=== PATIENT | female | born 1980 | race Caucasian/White ===

== ENCOUNTER → 2016-10-26 | Outpatient (REF) | payer OTHER | LOC: M LAB REF 13:04 | PROVIDERS: ATTEND Advanced Practice Midwife | DX: Z11.3 Encounter for screening for infections with a predominantly sexual mode of transmission (principal) ==

== ENCOUNTER → 2017-04-10 | Outpatient (CLI) | payer OTHER ==
[2017-04-10 18:04] LABS: ALBUMIN 3.8 GM/DL (3.2-5.2); ALBUMIN/GLOBULIN RATIO 1.58 (1.00-1.93); ALKALINE PHOSPHATASE 45 U/L (45-117); ALT/SGPT 22 U/L (12-78); ANION GAP 3 MEQ/L (8-16); AST/SGOT 11 U/L (15-37); BILIRUBIN,TOTAL 0.3 MG/DL (0.2-1.0); BLOOD UREA NITROGEN 7 MG/DL (7-18); CALCIUM LEVEL 8.4 MG/DL (8.5-10.1); CARBON DIOXIDE LEVEL 27 MEQ/L (21-32); CHLORIDE LEVEL 110 MEQ/L (98-107); CREATININE FOR GFR 0.79 MG/DL (0.55-1.02); FERRITIN 218 NG/ML (8-252); GLOMERULAR FILTRATION RATE > 60.0 (>60); GLUCOSE, FASTING 83 MG/DL (70-105); MAGNESIUM LEVEL 2.3 MG/DL (1.8-2.4); PERCENT SATURATION 37.6 % (13.2-37.4); PHOSPHORUS LEVEL 2.8 MG/DL (2.5-4.9); POTASSIUM SERUM 4.7 MEQ/L (3.5-5.1); SODIUM LEVEL 140 MEQ/L (136-145); TOTAL IRON BINDING CAPACITY 250 UG/DL (250-450); TOTAL PROTEIN 6.2 GM/DL (6.4-8.2)
[2017-04-10 18:20] LABS: BASO % 0.3 % (0.0-1.0); EOS # 0.3 K/mm3 (0.0-0.50); EOS % 4.2 % (0.0-3.0); LARGE UNSTAINED CELL # 0.1 K/mm3 (0.0-0.4); LYMPH # 2.1 K/mm3 (1.5-4.5); LYMPH % 29.8 % (24.0-44.0); MEAN CORPUSCULAR HEMOGLOBIN 30.3 pg (27.0-33.0); MEAN CORPUSCULAR HGB CONC 32.9 g/dl (32.0-36.5); MEAN CORPUSCULAR VOLUME 92.1 fl (80.0-96.0); MONO # 0.3 K/mm3 (0.0-0.8); MONO % 4.1 % (0.0-5.0); NEUTROPHILS # 4.1 K/mm3 (1.8-7.7); NEUTROPHILS % 60.6 % (36.0-66.0); PLATELET COUNT, AUTOMATED 263 k/mm3 (150-450); WHITE BLOOD COUNT 6.8 K/mm3 (4.0-10.0)
[2017-04-10 19:57] LABS: VITAMIN B12 LEVEL 1081 PG/ML (247-911)
[2017-04-13 11:56] LABS: PRETREATED FOLATE FOR RBCFOL 6.4 NG/ML
== END ==
LOC: M WUC 12:46
PROVIDERS: ATTEND Surgery
DX: K91.2 Postsurgical malabsorption, not elsewhere classified (principal); Z98.84 Bariatric surgery status; E55.9 Vitamin D deficiency, unspecified

== ENCOUNTER → 2017-06-28 | Outpatient (REF) | payer OTHER | LOC: M LAB REF 18:32 | PROVIDERS: ATTEND Nurse Practitioner Adult Health | DX: Z82.49 Family history of ischemic heart disease and other diseases of the circulatory system (principal) ==

== ENCOUNTER → 2019-12-29 | Outpatient (CLI) | payer OTHER | LOC: M LABSMTC 10:01 | PROVIDERS: ATTEND Family Medicine | DX: Z11.59 Encounter for screening for other viral diseases (principal); Z20.828 Contact with and (suspected) exposure to other viral communicable diseases ==

== ENCOUNTER 2021-08-09 22:51 | Emergency (ER) | payer OTHER ==
[~2021-08-09] VITALS: Ht 162.6 cm; Wt 81.8 kg
--- OUTSIDE RECORDS SUMMARY | 2021-08-09 22:56 | CCD ---
Author Author [facility] Organization [facility] Address Unknown Phone Unavailable Care Team Providers Care Route Sales Specialist Name Role Phone GABRIEL, J Leona ANP Unavailable Unavailable GABRIEL, J Leona ANP Unavailable Unavailable GABRIEL, J Leona ANP Unavailable Unavailable GABRIEL, J Leona ANP Unavailable Unavailable GABRIEL, J Leona ANP Unavailable Unavailable GABRIEL, J Leona ANP Unavailable Unavailable GABRIEL, J Leona ANP Unavailable Unavailable GABRIEL, J Leona ANP Unavailable Unavailable GABRIEL, J Leona ANP Unavailable Unavailable GABRIEL, J Leona ANP Unavailable Unavailable GABRIEL, J Leona ANP Unavailable Unavailable GABRIEL, J Leona ANP Unavailable Unavailable GABRIEL, J Leona ANP Unavailable Unavailable GABRIEL, J Leona ANP Unavailable Unavailable GABRIEL, J Leona ANP Unavailable Unavailable GABRIEL, J Leona ANP Unavailable Unavailable GABRIEL, J Leona ANP Unavailable Unavailable GABRIEL, J Leona ANP Unavailable Unavailable GABRIEL, J Leona ANP Unavailable Unavailable GABRIEL, J Leona ANP Unavailable Unavailable GABRIEL, J Leona ANP Unavailable Unavailable GABRIEL, J Leona ANP Unavailable Unavailable GABRIEL, J Leona ANP Unavailable Unavailable GABRIEL, J Leona ANP Unavailable Unavailable GABRIEL, J Leona ANP Unavailable Unavailable GABRIEL, J Leona ANP Unavailable Unavailable GABRIEL, J Leona ANP Unavailable Unavailable GABRIEL, J Leona ANP Unavailable Unavailable GABRIEL, J Leona ANP Unavailable Unavailable GABRIEL, J Leona ANP Unavailable Unavailable GABRIEL, J Leona ANP Unavailable Unavailable GABRIEL, J Leona ANP Unavailable Unavailable GABRIEL, J Leona ANP Unavailable Unavailable GABRIEL, J Leona ANP Unavailable Unavailable GABRIEL, J Leona ANP Unavailable Unavailable GABRIEL, J Leona ANP Unavailable Unavailable GABRIEL, J Leona ANP Unavailable Unavailable GABRIEL, J Leona ANP Unavailable Unavailable GABRIEL, J Leona ANP Unavailable Unavailable GABRIEL, J Leona ANP Unavailable Unavailable GABRIEL, J Leona ANP Unavailable Unavailable GABRIEL, J Leona ANP Unavailable Unavailable GABRIEL, J Leona ANP Unavailable Unavailable GABRIEL, J Leona ANP Unavailable Unavailable GABRIEL, J Leona ANP Unavailable Unavailable GABRIEL, J Leona ANP Unavailable Unavailable GABRIEL, J Leona ANP Unavailable Unavailable GABRIEL, J Leona ANP Unavailable Unavailable GABRIEL, J Leona ANP Unavailable Unavailable GABRIEL, J Leona ANP Unavailable Unavailable GABRIEL, J Leona ANP Unavailable Unavailable GABRIEL, J Leona ANP Unavailable Unavailable GABRIEL, J Leona ANP Unavailable Unavailable GABRIEL, J Leona ANP Unavailable Unavailable GABRIEL, J Leona ANP Unavailable Unavailable GABRIEL, J Leona ANP Unavailable Unavailable GABRIEL, J Leona ANP Unavailable Unavailable GABRIEL, J Leona ANP Unavailable Unavailable GABRIEL, J Leona ANP Unavailable Unavailable GABRIEL, J Leona ANP Unavailable Unavailable GABRIEL, J Leona ANP Unavailable Unavailable GABRIEL, J Leona ANP Unavailable Unavailable GABRIEL, J Leona ANP Unavailable Unavailable GABRIEL, J Leona ANP Unavailable Unavailable Re-disclosure Warning The records that you are about to access may contain information from federally-assisted alcohol or drug abuse programs. If such information is present, then the following federally mandated warning applies: This information has been disclosed to you from records protected by federal confidentiality rules (42 CFR part 2). The federal rules prohibit you from making any further disclosure of this information unless further disclosure is expressly permitted by the written consent of the person to whom it pertains or as otherwise permitted by 42 CFR part 2. A general authorization for the release of medical or other information is NOT sufficient for this purpose. The Federal rules restrict any use of the information to criminally investigate or prosecute any alcohol or drug abuse patient.The records that you are about to access may contain highly sensitive health information, the redisclosure of which is protected by Article 27-F of the [place] Public Health law. If you continue you may have access to information: Regarding HIV / AIDS; Provided by facilities licensed or operated by the [place] Office of Mental Health; or Provided by the [place] [facility] Office for People With Developmental Disabilities. If such information is present, then the following [place] [facility] mandated warning applies: This information has been disclosed to you from confidential records which are protected by state law. State law prohibits you from making any further disclosure of this information without the specific written consent of the person to whom it pertains, or as otherwise permitted by law. Any unauthorized further disclosure in violation of state law may result in a fine or mcfp sentence or both. A general authorization for the release of medical or other information is NOT sufficient authorization for further disc losure. Family History Family Member Name Family Member Gender Family Member Status Date o f Status Description Data Source(s) Unknown Male Problem [facility] ([facility]) Unknown Female Problem [facility] ([facility], ) Unknown Female Problem [facility] ([facility] ) Unknown Female Problem [facility] ([facility] ) Unknown Female Problem [facility] ([facility] ) Unknown Unknown Problem [facility]) Unknown Unknown Problem [facility] ([facility]) Encounters Encounter Providers Location Date Indications Data Source(s ) Outpatient Attender: Leona Aguirre 10/2020 11:20:00 AM EDT [facility] ([facility] ) Immunizations Vaccine Date Status Description Data Source(s) COVID-19 VACCINE Moderna 07/23/2021 12:00:00 AM EDT completed [facility] Vaccine Series Complete: YESThis Data wa s Submitted to [facility] Via [employer]. COVID-19 VACCINE Moderna 11/01/2020 12:00:00 AM EST completed [facility] Vaccine Series Complete: YESThis Data wa s Submitted to [facility] [employer]. COVID-19 VACCINE Moderna 10/04/2020 12:00:00 AM EST completed [facility] Vaccine Series Complete: NOThis Data was Submitted to [facility] [employer]. Medications Medication Brand Name Start Date Product Form Dose Route Admi nistrative Instructions Pharmacy Instructions Status Indications Reaction Description Data Source(s) Zolpidem tartrate 6.25 MG Extended Release Oral Tablet [Ambi en] Ambien CR 11/05/2020 12:00:00 AM EST active [facility] ([facility]) Suvorexant 10 MG Oral Tablet [Belsomra] Belsomra 11/03/2020 12:00:0 0 AM EST ORAL completed [facility] ([facility]) Insurance Providers Payer name Policy type / Coverage type Policy ID Covered green party ID Covered green party's relationship to parra Policy Parra Plan Information EBS RMSCO [id number] Spo [id number] [place] [employer]/Multiplan Medigap Part B [id number] Self [id number] [facility] [id number] [facility] [id number] [facility] [id number] [place] [employer]/Multiplan Medigap Part B [id number] Self [id number] [facility] [id number] [facility] [id number] LIFETIME BENEFIT SOLUTIONS U [id number] Spouse [id number] D [employer] Dental HMO P [id number] S U [id number] OTHER B TRANSPLANT Self TRANSPLAN T Cigna/MVP Con Gen/Prefcar Commercial [id number] Self [id number] Lifetime Benefit ([employer]) Commercial Family [id number] Family Lifetime Benefit ([employer]) Commercial [id number] Family Depende nt LIFETIME BENEFIT SOLUTIO O [id number] P [id number] LIFETIME BENEFIT SOLUTIO O [id number] P [id number] Lifetime Benefit Solution Commercial [id number] Family Depend ent P UNAVAILABLE UNAVAILA BLE [employer] MEDICAL CLAIMS [id number] [employer] [id number] SP U [id number] LIFETIME BENEFIT SOLUTIONS [id number] HU2 [id number] Lifetime Benefit ([employer]) Commercial [id number] Lifetime Benefit ([employer]) Commercial [id number] Family Dependent [id number] Lifetime Benefit ([employer]) Commercial [id number] Self Pay P UNAVAILABLE S UNAVAILA BLE OTHER HEA UNAVAILABLE [id number] S UNAVAIL ABLE Lifetime Benefit ([employer]) Commercial [id number] Lifetime Benefit ([employer]) Commercial [id number] Family Dependent [id number] Lifetime Benefits [facility]ly [facility] Health Maintenance Organization (HMO) [id number] Family Dependent Problems, Conditions, and Diagnoses No Information Surgeries/Procedures No Information Results ID Date Data Source [id number] 08/01/2021 10:30:00 AM [facility] Value Range Interpretation Code Description Data Yamileth rce(s) Supporting Document(s) SARS-CoV-2 (COVID-19) RNA [Presence] in Saliva (oral fluid) by FARIBA with probe detection Negative [facility] This lab was ordered by [facility] and reported by [employer]. ID Date Data Source [id number] 05/11/2021 08:32:00 AM EDT [facility] Name Value Range Interpretation Code Description Data Yamileth rce(s) Supporting Document(s) SARS-CoV-2 (COVID-19) Ag [Presence] in R espiratory specimen by Rapid immunoassay Not Detected [facility] This lab was ordered by [facility] and rep orted by [employer]. ID Date Data Source [id number] 11/17/2020 02:43:00 PM EST [facility] Name Value Range Interpretation Code Description Data Yamileth rce(s) Supporting Document(s) SARS coronavirus 2 RNA [Presence] in Res piratory specimen by FARIBA with probe detection Negative [facility] This lab was ordered by [facility] and reported by Josee MOREIRA. ID Date Data Source [id number] 11/05/2020 08:35:00 AM EST [facility] ([facility]) Name Value Range Interpretation Code Description Data Yamileth rce(s) Supporting Document(s) Laboratory test finding (navigational concept) Laboratory test result [facility] ([facility]) ID Date Data Source [id number] 11/05/2020 08:35:00 AM EST [facility] ([facility]) Name Value Range Interpretation Code Description Data Yamileth rce(s) Supporting Document(s) Thyrotropin [Units/volume] in Serum or Plasma by Detec tion limit <= 0.05 mIU/L 0.574 uIU/mL 0.450-4.500 [facility] ([facility] ) ID Date Data Source [id number] 11/05/2020 08:35:00 AM EST [facility] ([facility]) Name Value Range Interpretation Code Description Data Yamileth rce(s) Supporting Document(s) Cholesterol [Mass/volume] in Serum or Plasma 198 mg/dL 100-199 [facility] ([facility]) Triglyceride [Mass/volume] in Serum or Plasma 87 mg/dL 0-149 [facility] ([facility]) Cholesterol in HDL [Mass/volume] in Serum or Plasma 56 mg/dL [facility] ([facility]) Laboratory test finding (navigational concept) 126 mg/dL 0-99 [facility] ([facility]) Laboratory test finding (navigational concept) 16 mg/dL 5-40 [facility] ([facility]) Comment: Laboratory test result [facility] ([facility]) ID Date Data Source [id number] 11/05/2020 08:35:00 AM EST [facility] ([facility]) Name Value Range Interpretation Code Description Data Yamileth rce(s) Supporting Document(s) Glucose [Mass/volume] in Serum or Plasma 77 mg/dL 65-99 [facility] ([facility]) Urea nitrogen [Mass/volume] in Serum or Plasma 9 mg/dL 6-24 [facility] ([facility]) Creatinine [Mass/volume] in Serum or Plasma 0.82 mg/dL 0.57-1.00 [facility] ([facility]) eGFR If NonAfricn Am 89 mL/min/1.73 MEDE NT ([facility]) eGFR If Africn Am 103 mL/min/1.73 [facility] ([facility]) Potassium [Moles/volume] in Serum or Plasma 4.4 mmol/L 3.5-5.2 [facility] ([facility]) Urea nitrogen/Creatinine [Mass Ratio] in Serum or Plasma 11 9 -23 [facility] ([facility]) Sodium [Moles/volume] in Serum or Plasma 140 mmol/L 134-144 [facility] ([facility]) Carbon dioxide, total [Moles/volume] in Serum or Plasma 25 mmol/L 20 -29 [facility] ([facility]) Chloride [Moles/volume] in Serum or Plasma 103 mmol/L 96-106 [facility] ([facility]) Calcium [Mass/volume] in Serum or Plasma 9.3 mg/dL 8.7-10.2 [facility] ([facility]) Protein [Mass/volume] in Serum or Plasma 6.4 g/dL 6.0-8.5 [facility] ([facility]) Albumin [Mass/volume] in Serum or Plasma 4.3 g/dL 3.8-4.8 [facility] ([facility]) Globulin [Mass/volume] in Serum by calculation 2.1 g/dL 1.5-4.5 [facility] ([facility]) Bilirubin.total [Mass/volume] in Serum or Plasma 0.2 mg/dL 0.0-1.2 [facility] ([facility]) Albumin/Globulin [Mass Ratio] in Serum or Plasma 2.0 1.2-2.2 [facility] ([facility]) Aspartate aminotransferase [Enzymatic activity/volume] in Serum or Plasma 19 IU/L 0-40 [facility] ([facility] ) Alanine aminotransferase [Enzymatic activity/volume] in Seru m or Plasma 16 IU/L 0-32 [facility] ([facility]) Alkaline phosphatase [Enzymatic activity/volume] in Serum or Plasma 54 IU/L 39-117 [facility] ([facility]) ID Date Data Source [id number] 11/05/2020 08:35:00 AM EST [facility] ([facility]) Name Value Range Interpretation Code Description Data Yamileth rce(s) Supporting Document(s) Leukocytes [#/volume] in Blood by Automated count 4.7 x10E3/uL 3.4-10 .8 [facility] ([facility]) Erythrocytes [#/volume] in Blood by Automated count 4.39 x10E6/uL 3.7 7-5.28 [facility] ([facility]) Hemoglobin [Mass/volume] in Blood 13.1 g/dL 11.1-15.9 [facility] ([facility]) Erythrocyte mean corpuscular hemoglobin [Entitic mass] by Automated count 29.8 pg 26.6-33.0 [facility] ([facility] ) Erythrocyte mean corpuscular volume [Entitic volume] by Auto mated count 92 fL 79-97 [facility] ([facility]) Hematocrit [Volume Fraction] of Blood by Automated count 40.3 % 3 4.0-46.6 [facility] ([facility]) Erythrocyte distribution width [Ratio] by Automated count 11.7 % 11.7-15.4 [facility] ([facility]) Erythrocyte mean corpuscular hemoglobin concentration [Mass/volume] by Automated count 32.5 g/dL 31.5-35.7 [facility] Neutrophils/100 leukocytes in Blood by Automated count 55 % [facility] ([facility]) Platelets [#/volume] in Blood by Automated count 272 x10E3/uL 150-450 [facility] ([facility]) Lymphocytes/100 leukocytes in Blood by Automated count 31 % [facility] ([facility]) Monocytes/100 leukocytes in Blood by Automated count 8 % [facility] ([facility]) Basophils/100 leukocytes in Blood by Automated count 0 % [facility] ([facility]) Eosinophils/100 leukocytes in Blood by Automated count 6 % [facility] ([facility]) Lymphocytes [#/volume] in Blood 1.5 x10E3/uL 0.7-3.1 [facility] ([facility]) Neutrophils [#/volume] in Blood by Automated count 2.5 x10E3/uL 1.4-7 .0 [facility] ([facility]) Immature cells [#/volume] in Blood [facility] Monocytes [#/volume] in Blood 0.4 x10E3/uL 0.1-0.9 [facility] ([facility]) Eosinophils [#/volume] in Blood by Automated count 0.3 x10E3/uL 0.0-0 .4 [facility] ([facility]) Immature granulocytes [#/volume] in Blood by Automated count 0.0 x10E3/uL 0.0-0.1 [facility] ([facility]) Immature granulocytes/100 leukocytes in Blood by Automated count 0 % [facility] Basophils [#/volume] in Blood by Automated count 0.0 x10E3/uL 0.0-0.2 [facility] Nucleated erythrocytes/100 leukocytes [Ratio] in Blood by Automated count Laboratory test result [facility] ([facility]) Morphology [Interpretation] in Blood Narrative Laboratory test result [facility] ([facility]) ID Date Data Source [id number] 07/05/2020 12:00:00 AM EDT [facility] Name Value Range Interpretation Code Description Data Yamileth rce(s) Supporting Document(s) 2019 Novel Coronavirus RNA [facility] This lab was ordered by [facility] and reported by [facility] [employer] [facility]. Procedure Social History No Information Vital Signs ID Date Data Source UNK Name Value Range Interpretation Code Description Data Source(s) Systolic blood pressure 98 mm[Hg] 98 mm[Hg] M [facility] ([facility]) Diastolic blood pressure 60 mm[Hg] 60 mm[Hg] [facility] ([facility]) Heart rate 95 /min 95 /min [facility] ([facility]) Body height 64.50 [in_i] 64.50 [in_i] [facility] ([facility]) 5'4.50" Body weight 178.00 [lb_av] 178.00 [lb_av] [facility] T ([facility]) Oxygen saturation in Arterial blood by Pulse oximetry 95 % 95 % [facility] ([facility]) Body mass index (BMI) [Ratio] 30.1 kg/m2 30.1 k g/m2 [facility] ([facility])
[2021-08-09] MEDS ORDERED: LEVO137T2 (23:08)
[2021-08-09] MEDS ORDERED: ZOLP6.2517 (23:08)
[2021-08-09] MEDS ORDERED: PROP10TA56 (23:08)
[2021-08-10 00:15] LABS: BLOOD UREA NITROGEN 16 MG/DL (7-18); CALCIUM LEVEL 8.8 MG/DL (8.5-10.1); CARBON DIOXIDE LEVEL 27 MEQ/L (21-32); CHLORIDE LEVEL 108 MEQ/L (98-107); CK-MB VALUE MASS < 1.0 NG/ML (<3.6); CPK CREATINE PHOSPHOKINASE 91 U/L (26-192); CREATININE FOR GFR 0.77 MG/DL (0.55-1.30); FREE T4 1.22 NG/DL (0.76-1.46); GLOMERULAR FILTRATION RATE > 60.0 (>58); GLUCOSE, FASTING 93 MG/DL (70-100); SODIUM LEVEL 140 MEQ/L (136-145); THYROID STIMULATING HORMONE 0.096 uIU/ML (0.358-3.740); TROPONIN I < 0.02 NG/ML (< 0.10)
[2021-08-10 00:30] LABS: BASO % 0.4 % (0.0-1.0); EOS # 0.2 10^3/uL (0.0-0.5); EOS % 2.5 % (0.0-3.0); HEMATOCRIT 37.8 % (36.0-47.0); HEMOGLOBIN 12.7 g/dl (12.0-15.5); LYMPH # 2.1 10^3/uL (1.5-5.0); LYMPH % 21.3 % (24.0-44.0); MEAN CORPUSCULAR HGB CONC 33.6 g/dl (32.0-36.5); MEAN CORPUSCULAR VOLUME 89.4 fl (80.0-96.0); MONO # 0.7 10^3/uL (0.0-0.8); MONO % 7.4 % (2.0-8.0); NEUTROPHILS # 6.6 10^3/uL (1.5-8.5); NEUTROPHILS % 68.2 % (36.0-66.0); PLATELET COUNT, AUTOMATED 257 10^3/uL (150-450); RED BLOOD COUNT 4.23 10^6/uL (4.00-5.40); WHITE BLOOD COUNT 9.6 10^3/uL (4.0-10.0)
--- OUTSIDE RECORDS SUMMARY | 2021-08-10 00:30 | CCD ---
Author Author [facility] Organization [facility] Address Unknown Phone Unavailable Care Team Providers Care Entry Level Manager Name Role Phone GABRIEL, J Leona ANP [...] is protected by Article 27-F of the [facility] Public Health law. If you continue you may have access to information: Regarding HIV / AIDS; Provided by facilities licensed or operated by the [facility] Office of Mental Health; or Provided by the [facility] Office for People With Developmental Disabilities. If such information is present, then the following [facility] mandated warning applies: This information has been [...] law may result in a fine or care home sentence or both. A general authorization for the release of medical or other information is NOT sufficient authorization for further disc losure. Family History Family Member Name Family Member Gender Family Member Status Date o f Status Description Data Source(s) Unknown Male Problem [facility] ([facility]) Unknown Female Problem [facility] ([facility], ) Unknown Female Problem [facility] ([facility] ) Unknown Female Problem [facility] ([facility] ) Unknown Female Problem [facility] ([facility] ) [facility] Unknown Problem [facility]) Unknown Unknown Problem [facility] ([facility]) Encounters Encounter Providers Location Date Indications Data Source(s ) Outpatient Attender: Leona Aguirre 10/2020 11:20:00 AM EDT [facility] ([facility] ) Immunizations Vaccine Date Status Description Data Source(s) COVID-19 VACCINE Moderna 07/23/2021 12:00:00 AM EDT completed [facility] Vaccine Series Complete: YESThis Data wa s Submitted to [facility] Via [employer]. COVID-19 VACCINE Moderna 11/01/2020 12:00:00 AM EST completed [facility] Vaccine Series Complete: YESThis Data wa s Submitted to [facility] [employer]. COVID-19 VACCINE Moderna 10/04/2020 12:00:00 AM EST completed [facility] Vaccine Series Complete: NOThis Data was Submitted to [facility] [employer]. Medications Medication Brand Name Start Date Product Form Dose Route Admi nistrative Instructions Pharmacy Instructions Status Indications Reaction Description Data Source(s) Zolpidem tartrate 6.25 MG Extended Release Oral Tablet [Ambi en] Ambien CR 11/05/2020 12:00:00 AM EST active [facility] ([facility]) Suvorexant 10 MG Oral Tablet [Belsomra] Belsomra 11/03/2020 12:00:0 0 AM EST ORAL completed [facility] ([facility]) Insurance Providers Payer name Policy type / Coverage type Policy ID Covered green party ID Covered green party's relationship to parra Policy Parra Plan Information EBS RMSCO [id number] Spo [id number] [place] H[employer]/Multiplan Medigap Part B [id number] Self [id number] [facility] [id number] [facility] [id number] [facility] [id number] [place] Hcare/Multiplan Medigap Part B [id number] Self [id number] [facility] [id number] [facility] [id number] LIFETIME BENEFIT SOLUTIONS U [id number] Spouse [id number] D [employer] HMO P [id number] S U [id number] OTHER B TRANSPLANT Self TRANSPLAN T Cigna/MVP Con Gen/Prefcar Commercial [id number] Self [id number] Lifetime Benefit ([employer]) Commercial Family [id number] Family Lifetime Benefit ([employer]) Commercial [id number] Family Depende nt LIFETIME BENEFIT SOLUTIO O [id number] P [id number] LIFETIME BENEFIT SOLUTIO O [id number] P [id number] Lifetime Benefit Solution Commercial [id number] Family Depend ent P UNAVAILABLE UNAVAILA BLE [employer] MEDICAL CLAIMS [id number] [id number] [employer] [id number] SP U [id number] LIFETIME BENEFIT SOLUTIONS [id number] HU2 [id number] Lifetime Benefit ([employer]) Commercial [id number] Lifetime Benefit ([employer]) Commercial [id number] Family Dependent [id number] Lifetime Benefit ([employer]) Commercial [id number] Self Pay P UNAVAILABLE S UNAVAILA BLE OTHER HEA UNAVAILABLE [id number] S UNAVAIL ABLE Lifetime Benefit ([employer]) Commercial [id number] Lifetime Benefit ([employer]) Commercial [id number] Family Dependent [id number] Lifetime Benefits [facility] Maintenance Organization (HMO) [id number] Family Dependent Problems, Conditions, and Diagnoses No Information Surgeries/Procedures No Information Results ID Date Data Source [id number] 08/01/2021 10:30:00 AM EDT [facility] Name Value Range Interpretation Code Description Data Yamileth rce(s) Supporting Document(s) SARS-CoV-2 (COVID-19) RNA [Presence] in Saliva (oral fluid) by FARIBA with probe detection Negative [facility] This lab was ordered by [facility] and reported by [employer]. ID Date Data Source [id number] 05/11/2021 08:32:00 AM EDT [facility] Name Value Range Interpretation Code Description Data Yamileth rce(s) Supporting Document(s) SARS-CoV-2 (COVID-19) Ag [Presence] in R espiratory specimen by Rapid immunoassay Not Detected [facility] This lab was ordered by [employer] and rep orted by [employer]. ID Date Data Source [id number] 11/17/2020 02:43:00 PM EST [facility] Name Value Range Interpretation Code Description Data Yamileth rce(s) Supporting Document(s) SARS coronavirus 2 RNA [Presence] in Res piratory specimen by FARIBA with probe detection Negative [facility] This lab was ordered by [facility] and reported by Josee MOREIRA. ID Date Data Source [id number] 11/05/2020 08:35:00 AM EST [facility] ([facility]) Name Value Range Interpretation Code Description Data Yamileth rce(s) Supporting Document(s) Laboratory test finding (navigational concept) Laboratory test result [facility] ([facility]) ID Date Data Source [id number] 11/05/2020 08:35:00 AM EST [facility] ([facility]) Name Value Range Interpretation Code Description Data Yamileth rce(s) Supporting Document(s) Thyrotropin [Units/volume] in Serum or Plasma by Detec tion limit <= 0.05 mIU/L 0.574 uIU/mL 0.450-4.500 [facility] ([facility] ) ID Date Data Source [id number] 11/05/2020 08:35:00 AM EST [facility] ([facility]) Name Value Range Interpretation Code Description Data Yamileth rce(s) Supporting Document(s) Cholesterol [Mass/volume] in Serum or Plasma 198 mg/dL 100-199 [facility] ([facility]) Triglyceride [Mass/volume] in Serum or Plasma 87 mg/dL 0-149 [facility] ([facility]) Cholesterol in HDL [Mass/volume] in Serum or Plasma 56 mg/dL [facility] ([facility]) Laboratory test finding (navigational concept) 126 mg/dL 0-99 [facility] ([facility]) Laboratory test finding (navigational concept) 16 mg/dL 5-40 [facility] ([facility]) Comment: Laboratory test result [facility] ([facility]) ID Date Data Source [id number] 11/05/2020 08:35:00 AM EST [facility] ([facility]) Name Value Range Interpretation Code Description Data Yamileth rce(s) Supporting Document(s) Glucose [Mass/volume] in Serum or Plasma 77 mg/dL 65-99 [facility] ([facility]) Urea nitrogen [Mass/volume] in Serum or Plasma 9 mg/dL 6-24 [facility] ([facility]) Creatinine [Mass/volume] in Serum or Plasma 0.82 mg/dL 0.57-1.00 [facility] ([facility]) eGFR If NonAfricn Am 89 mL/min/1.73 MEDE NT ([facility]) eGFR If Africn Am 103 mL/min/1.73 [facility] ([facility]) Potassium [Moles/volume] in Serum or Plasma 4.4 mmol/L 3.5-5.2 [facility] ([facility]) Urea nitrogen/Creatinine [Mass Ratio] in Serum or Plasma 11 9 -23 [facility] ([facility]) Sodium [Moles/volume] in Serum or Plasma 140 mmol/L 134-144 [facility] ([facility]) Carbon dioxide, total [Moles/volume] in Serum or Plasma 25 mmol/L 20 -29 [facility] ([facility]) Chloride [Moles/volume] in Serum or Plasma 103 mmol/L 96-106 [facility] ([facility]) Calcium [Mass/volume] in Serum or Plasma 9.3 mg/dL 8.7-10.2 [facility] ([facility]) Protein [Mass/volume] in Serum or Plasma 6.4 g/dL 6.0-8.5 [facility] ([facility]) Albumin [Mass/volume] in Serum or Plasma 4.3 g/dL 3.8-4.8 [facility] ([facility]) Globulin [Mass/volume] in Serum by calculation 2.1 g/dL 1.5-4.5 [facility] ([facility]) Bilirubin.total [Mass/volume] in Serum or Plasma 0.2 mg/dL 0.0-1.2 [facility] ([facility]) Albumin/Globulin [Mass Ratio] in Serum or Plasma 2.0 1.2-2.2 [facility] ([facility]) Aspartate aminotransferase [Enzymatic activity/volume] in Serum or Plasma 19 IU/L 0-40 [facility] ([facility] ) Alanine aminotransferase [Enzymatic activity/volume] in Seru m or Plasma 16 IU/L 0-32 [facility] ([facility]) Alkaline phosphatase [Enzymatic activity/volume] in Serum or Plasma 54 IU/L 39-117 [facility] ([facility]) ID Date Data Source [id number] 11/05/2020 08:35:00 AM EST [facility] ([facility]) Name Value Range Interpretation Code Description Data Yamileth rce(s) Supporting Document(s) Leukocytes [#/volume] in Blood by Automated count 4.7 x10E3/uL 3.4-10 .8 [facility] ([facility]) Erythrocytes [#/volume] in Blood by Automated count 4.39 x10E6/uL 3.7 7-5.28 [facility] ([facility]) Hemoglobin [Mass/volume] in Blood 13.1 g/dL 11.1-15.9 [facility] Erythrocyte mean corpuscular hemoglobin [Entitic mass] by Automated count 29.8 pg 26.6-33.0 [facility] Erythrocyte mean corpuscular volume [Entitic volume] by Auto mated count 92 fL 79-97 [facility] Hematocrit [Volume Fraction] of Blood by Automated count 40.3 % 3 4.0-46.6 [facility] Erythrocyte distribution width [Ratio] by Automated count 11.7 % 11.7-15.4 [facility] Erythrocyte mean corpuscular hemoglobin concentration [Mass/volume] by Automated count 32.5 g/dL 31.5-35.7 [facility] Neutrophils/100 leukocytes in Blood by Automated count 55 % [facility] ([facility]) Platelets [#/volume] in Blood by Automated count 272 x10E3/uL 150-450 [facility] ([facility]) Lymphocytes/100 leukocytes in Blood by Automated count 31 % [facility] ([facility]) Monocytes/100 leukocytes in Blood by Automated count 8 % [facility] ([facility]) Basophils/100 leukocytes in Blood by Automated count 0 % [facility] ([facility]) Eosinophils/100 leukocytes in Blood by Automated count 6 % [facility] ([facility]) Lymphocytes [#/volume] in Blood 1.5 x10E3/uL 0.7-3.1 [facility] Neutrophils [#/volume] in Blood by Automated count 2.5 x10E3/uL 1.4-7 .0 [facility] ([facility]) Immature cells [#/volume] in Blood [facility] Monocytes [#/volume] in Blood 0.4 x10E3/uL 0.1-0.9 [facility] ([facility]) Eosinophils [#/volume] in Blood by Automated count 0.3 x10E3/uL 0.0-0 .4 [facility] ([facility]) Immature granulocytes [#/volume] in Blood by Automated count 0.0 x10E3/uL 0.0-0.1 [facility] ([facility]) Immature granulocytes/100 leukocytes in Blood by Automated count 0 % [facility] Basophils [#/volume] in Blood by Automated count 0.0 x10E3/uL 0.0-0.2 [facility] Nucleated erythrocytes/100 leukocytes [Ratio] in Blood by Automated count Laboratory [facility] Morphology [Interpretation] in Blood Narrative Laboratory test result [facility] ID Date Data Source [id number] 07/05/2020 12:00:00 AM EDT [facility] Name Value Range Interpretation Code Description Data Yamileth rce(s) Supporting Document(s) 2019 Novel Coronavirus RNA [facility] This lab was ordered by [facility] and reported by [facility]. Procedure Social History No Information Vital Signs ID Date Data Source UNK Name Value Range Interpretation Code Description Data Source(s) Systolic blood pressure 98 mm[Hg] 98 mm[Hg] M [facility] ([facility]) Diastolic blood pressure 60 mm[Hg] 60 mm[Hg] [facility] Heart rate 95 /min 95 /min [facility] ([facility]) Body height 64.50 [in_i] 64.50 [in_i] [facility] ([facility]) 5'4.50" Body weight 178.00 [lb_av] 178.00 [lb_av] [facility] T ([facility]) Oxygen saturation in Arterial blood by Pulse oximetry 95 % 95 % [facility] ([facility]) Body mass index (BMI) [Ratio] 30.1 kg/m2 30.1 k g/m2 [facility] ([facility])
[2021-08-10 01:06] VITALS: BP 123/66
--- NOTE | 2021-08-10 20:30 | ECGEPIP ---
[facility] - ED Test Date: 2021-08-09 Pat Name: MEI LUNSFORD Department: Room: - Gender: Female Green Chainer: SETH : 1980 Requested By: Pierce Kang Order Number: [id number] Reading MD: Melania Albert Measurements Intervals [place] Rate: 91 P: 42 WY: 134 QRS: 80 QRSD: 86 T: 42 QT: 350 QTc: 430 Interpretive Statements Normal sinus rhythm No prior Electronically Signed on 08-10-2021 20:30:18 EST by Melania Albert
== END 2021-08-10 01:20 | disposition home or self-care (01) ==
LOC: M ED 22:51
DX: R00.2 Palpitations (principal); Z79.899 Other long term (current) drug therapy